=== PATIENT | male | born 1955 | race Caucasian/White ===

== ENCOUNTER 2024-07-11 17:22 | Emergency (ER) | payer OTHER, SELFPAY ==
[2024-07-11 17:26] VITALS: BP 191/94
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
[2024-07-11] MEDS: AUGMENTIN 875 MG/125 MG 1 TABLET PO (19:29)
[2024-07-11 19:36] VITALS: BP 188/86
== END 2024-07-11 19:41 | disposition home or self-care (01) ==
LOC: EMR 17:22
PROVIDERS: EMERGENCY PHYSICIAN Student in an Organized Health Care Education/Training Program; FAMILY PHYSICIAN Family Medicine
DX: S02.2XXA Fracture of nasal bones, initial encounter for closed fracture (principal); X58.XXXA Exposure to other specified factors, initial encounter; I10 Essential (primary) hypertension; E78.00 Pure hypercholesterolemia, unspecified; Z87.891 Personal history of nicotine dependence; Z90.79 Acquired absence of other genital organ(s)
CPT/HCPCS: 99284; 70450; 70486; 72125